=== PATIENT | female | born 1975 | race Hispanic/Latino ===

== ENCOUNTER 2017-08-10 21:19 | Emergency (ER) | payer OTHER ==
[2017-08-10] MEDS ORDERED: Acetaminophen 500 MG TAB ONE (22:31)
[2017-08-10 22:35] LABS: Bilirubin Negative (Negative); Blood, Urine Trace (Negative); Glucose, Urine (Dipstick) Negative (Negative); Leukocyte Trace (Negative); Nitrite Negative (Negative); Protein, Urine (Dipstick) Negative (Neg-Trace); Urobilinogen 0.2 mg/dL (0.2-1.0)
[2017-08-10 22:37] LABS: Clarity Hazy (Clear)
[2017-08-10 22:45] LABS: RBC/HPF 0-3 HPF (0-3); Squamous Epithelial 0-3 HPF (0-3); WBC/HPF 0-3 HPF (0-3)
== END 2017-08-10 23:20 | disposition home or self-care (01) ==
LOC: MADERS 21:19
DX: O09.512 Supervision of elderly primigravida, second trimester (principal); O99.512 Diseases of the respiratory system complicating pregnancy, second trimester; J10.1 Influenza due to other identified influenza virus with other respiratory manifestations; Z3A.00 Weeks of gestation of pregnancy not specified
CPT/HCPCS: 81003; 81015; 99283

== ENCOUNTER 2024-10-02 09:38 | Emergency (ER) | payer OTHER, SELFPAY ==
[2024-10-02] MEDS ORDERED: Acetaminophen 325 MG TAB ONE (10:02)
[2024-10-02] MEDS ORDERED: Boostrix 0.5 ML (Tdap) VIAL (>/=7 yrs of age) ONE (10:03)
== END 2024-10-02 11:20 | disposition home or self-care (01) ==
LOC: MADERS 09:38
DX: S01.81XA Laceration without foreign body of other part of head, initial encounter (principal); S16.1XXA Strain of muscle, fascia and tendon at neck level, initial encounter; E11.9 Type 2 diabetes mellitus without complications; Z23 Encounter for immunization; V44.5XXA Car driver injured in collision with heavy transport vehicle or bus in traffic accident, initial encounter; Y93.89 Activity, other specified; Y92.410 Unspecified street and highway as the place of occurrence of the external cause
CPT/HCPCS: 12011; 70450; 71046; 72125; 90471; 90715